=== PATIENT | female | born 1955 | race Caucasian/White ===

== ENCOUNTER → 2017-07-08 | Outpatient (CLI) | payer BC, OTHER | END | disposition home or self-care (01) | LOC: C.PAPS 14:15 | PROVIDERS: ATTEND Physician Assistant | DX: Z12.4 Encounter for screening for malignant neoplasm of cervix (principal) ==

== ENCOUNTER → 2017-09-01 | Outpatient (CLI) | payer OTHER ==
[~2017-09-01] MED LIST: ASPI81TA28 PO; DOCU-94 PO; LISI-461 PO
[2017-09-01 13:16] LABS: HEMATOCRIT 45.2 % (37-47); MEAN CELL VOLUME 90.8 fL (80-100); MEAN CORPUSCULAR HEMOGLOBIN 29.5 pg (25-34); MEAN CORPUSCULAR HGB CONC 32.5 g/dl (32-36); MEAN PLATELET VOLUME 10.6 fL (7.4-10.4); PLATELET COUNT 260 K/uL (130-400); RED BLOOD COUNT 4.98 M/uL (4.2-5.4); WHITE BLOOD COUNT 8.92 K/uL (4.8-10.8)
== END | disposition home or self-care (01) ==
LOC: C.LAB1850 12:06
PROVIDERS: ATTEND Obstetrics & Gynecology
DX: Z01.812 Encounter for preprocedural laboratory examination (principal)

== ENCOUNTER → 2017-09-22 | Day surgery (SDC) | payer OTHER ==
[2017-08-27 08:53] VITALS: Ht 163.8 cm; Wt 84.1 kg
[~2017-09-22] VITALS: Ht 163.8 cm; Wt 84.1 kg
[~2017-09-22] MED LIST changes: +ALBUAER; +ALBUTEROL 0.083% NEBU SOLN 3 ML VIAL INH ONE; +ALBUTEROL 0.083% NEBU SOLN 3 ML VIAL INH STA; +AMOX1TAB42 PO; +DEXAMETHASONE SOD INJ 4 MG/ML VIAL ONE; +FENTANYL CITRATE INJ 50 MCG/1 ML 2 ML VIAL ONE; +KETOROLAC TROMETHAMINE 30 MG/ML VIAL ONE; +LACTATED RINGER'S 1000ML 1,000 ML IV SCH; +LIDOCAINE HCL 2% 2 ML VIAL (20MG/ML) ONE; +MIDAZOLAM HCL 1 MG/ML 2ML VIAL ONE; +ONDANSETRON INJ 2 MG/ML 2 ML VIAL ONE; +PROPOFOL IV EMULSION 10 MG/ML 20 ML VIAL IV ONE
[2017-09-22 12:06] VITALS: PULSE 73; TEMP 36.8; O2SAT 97
[2017-09-22 12:36] VITALS: BP 162/88
--- NOTE | 2017-09-22 13:51 | Anesthesiology Progress Note ---
Anesthesia Progress Note Date of Service Sep 22, 2017. Progress Notes Patient presented for D & C and Hysteroscopy , under general anesthesia. Pt. is in the mid course of antibiotic therapy(augmentin) for sinusitis/URI.Pt is afebrile.Pt has been coughing quite frequently since arrival here.Pt also has Asthma.On PE of lungs .Pt has bilateral wheezing and coughing with white mucous.I had administered an albuterol nebulizer Tx to her.Wheezing was still present and coughing was still present.Pt states her chest is less tight after the Tx.After discussion w/ DR Garland and pt,it was agreed upon to cancel the elective procedure.Pt was advised to complete her antibiotic regimen and to see her primary physician.Dr Garland will reschedule her surgery in two weeks, assuming her breathing/infection has improved.
== END | disposition home or self-care (01) ==
LOC: X.SURG 11:28
PROVIDERS: ATTEND Obstetrics & Gynecology
DX: N95.0 Postmenopausal bleeding (principal); Z53.8 Procedure and treatment not carried out for other reasons; J32.9 Chronic sinusitis, unspecified; J45.909 Unspecified asthma, uncomplicated; I10 Essential (primary) hypertension; E04.9 Nontoxic goiter, unspecified; Z79.82 Long term (current) use of aspirin; Z79.899 Other long term (current) drug therapy

== ENCOUNTER → 2017-10-06 | Day surgery (SDC) | payer OTHER ==
[2017-09-28 11:04] VITALS: Ht 163.8 cm; Wt 84.1 kg
[~2017-10-06] VITALS: Ht 163.8 cm; Wt 84.1 kg
[~2017-10-06] MED LIST changes: -ALBUAER; +ALBUAER INH; -ALBUTEROL 0.083% NEBU SOLN 3 ML VIAL INH ONE; -ALBUTEROL 0.083% NEBU SOLN 3 ML VIAL INH STA; -AMOX1TAB42 PO; +ATROPINE SULFATE 0.1 MG/ML 5ML SYR IV PRN; -DEXAMETHASONE SOD INJ 4 MG/ML VIAL ONE; +EpHEDrine SULFATE INJ 50 MG/ML AMP IV PRN; +HYDROmorphone INJ 1 MG/ML SYR IV PRN; +KETAMINE HCL INJ 50 MG/ML 10 ML VIAL ONE; +MONT1TAB3 PO; +ONDANSETRON INJ 2 MG/ML 2 ML VIAL IV PRN; +OXYCODONE/ACETAMINOPHEN 5-325 TAB PO PRN; +PROMETHAZINE HCL INJ 12.5 MG in SODIUM CHLORIDE 0.9% 50ML 50 ML IV PRN; +PROMETHAZINE HCL INJ 25 MG in SODIUM CHLORIDE 0.9% 50ML 50 ML IV PRN; +SODIUM CHLORIDE 0.9% 1000ML 1,000 ML IV SCH
--- NOTE | 2017-10-06 08:54 | HISTORY & PHYSICAL EXAMINATION ---
DATE OF ADMISSION: 10/06/2017 CHIEF COMPLAINT: Postmenopausal bleeding. HISTORY OF PRESENT ILLNESS: The patient is a 62-year-old, here with complaint of postmenopausal bleeding and thickened endometrial lining was noted on ultrasound. She refuses an office attempt at endometrial biopsy, also requesting straight catheter urine sample to be sent for urine culture. She has urinalysis and culture done by primary care physician every few months to rule out urinary tract infection. No current symptoms. PAST MEDICAL HISTORY: Asthma, hypertension, thyroid goiter, history of blood transfusion, history of hepatitis C and history of mitral valve prolapse. PAST SURGICAL HISTORY: Appendectomy, removal of ectopic , elbow surgery, liver biopsy, thyroid biopsy, and tonsillectomy. FAMILY HISTORY: Denies. SOCIAL HISTORY: . Denies smoking. No alcohol use. Denies drug use. REVIEW OF SYSTEMS: All reviewed and negative except as above. ALLERGIES: DOXYCYCLINE. MEDICATIONS: Colace, aspirin 81 mg and lisinopril. PHYSICAL EXAMINATION: VITAL SIGNS: Please see nursing records for most up-to-date vitals. Most recent blood pressure in office was 130/80. PHYSICAL AND CONSTITUTIONAL: Awake, alert and oriented, no acute distress. CARDIOVASCULAR: Regular rate and rhythm. S1 and S2. LUNGS: Clear to auscultation bilaterally. ABDOMEN: Soft and nontender. No abdominal masses or hernias noted. EXTREMITIES: No edema. No calf tenderness. PELVIC: Deferred to operating room. ASSESSMENT: Postmenopausal bleeding. PLAN: Hysteroscopy, dilation and curettage and straight catheter urine specimen.
--- NOTE | 2017-10-06 14:03 | History & Physical Bridge - SC ---
H&P Re-Evaluation Bridge Note: I have examined the patient, reviewed the History & Physical and in the interval since the performance of the History & Physical I have noted the following changes of clinical significance: No changes noted
[2017-10-06 14:45] VITALS: TEMP 36.4
--- NOTE | 2017-10-06 14:46 | [facility] Post Operative Brief Note ---
Immediate Operative Summary Operative Date Oct 06, 2017. Pre-Operative Diagnosis Postmenopausal bleeding Post-Operative Diagnosis same as pre-op and endometrial polyp Procedure(s) Performed Dilatation And Curettage, Hysteroscopy, Polypectomy Surgeon Produce Specialist Surgeon(s) None Estimated Blood Loss 5ML Findings large endometrial polyp Specimens #1-Urine for culture A.Endometrial polyp Drains bladder drained prior to procedure for 150ml, sent to lab (sterile cath) Anesthesia heavy sedation Complication(s) None Disposition Recovery Room / PACU
--- NOTE | 2017-10-06 14:49 | Discharge Instructions-SurgCtr ---
Discharge Instructions Date of Service Oct 06, 2017. Visit Reason for Visit: Post Menopausal Bleeding Discharge Discharge Diagnosis / Problem: same + endometrial polyp Discharge Goals Goal(s): Diagnostic testing, Therapeutic intervention Activity Recommendations Activity Limitations: per Instructions/Follow-up section Anesthesia . Post Anesthesia Instructions: If you have had General Anesthesia or IV Sedation: * Do not drive today. * Resume driving when surgeon permits. * Do not make important decisions or sign legal documents today. * Call surgeon for: 1. Temperature elevations greater than 101 degrees F. 2. Uncontrollable pain. 3. Excessive bleeding. 4. Persistent nausea and vomiting. 5. Medication intolerance (nausea, vomiting or rash). * For nausea and vomiting use only clear liquids such as: tea, soda, bouillon until nausea subsides, then gradually increase diet as tolerated. * If you have any concerns or questions, call your surgeon's office. If physician is unavailable and it is an emergency, call 911 or go to the nearest emergency room. . Instructions / Follow-Up Instructions / Follow-Up ACTIVITY RECOMMENDATIONS: * Avoid tampons, douching, hot tubs, pools, and intercourse until bleeding has stopped. * May shower as usual. * No strenuous activity for 24-48 hours. After 24-48 hours, you may do anything you feel like doing (driving and sports are okay). SPECIAL CARE INSTRUCTIONS: Special Diet: * Mild nausea may occur in the immediate post-operative period. * Take clear liquids such as tea, cola or bouillon until all nausea has subsided; you may then resume your normal diet. Special Care: * Light bleeding and vaginal spotting can last from a few days to 3-4 weeks. Call your doctor if bleeding becomes heavier than the heaviest part of your period. * Check your temperature twice a day for one week. If it goes above 100.4 degrees Fahrenheit (38.0 Celsius), notify your doctor. * Call your doctor's office for an appointment for 6 weeks after your surgery. FOLLOW-UP VISIT: Call your doctor's office for an appointment for 6 weeks after your surgery. Diet Recommendations Home Diet: resume previous diet Procedures Procedures Performed: Dilatation And Curettage, Hysteroscopy, Polypectomy Pending Studies Studies pending at discharge: yes List of pending studies: endometrial polyp/curettings path Medical Emergencies . Who to Call and When: Medical Emergencies: If at any time you feel your situation is an emergency, please call 911 immediately. . Non-Emergent Contact Non-Emergency issues call your: Primary Care Provider, Breakdown Person . . "Provider Documentation" section prepared by Jenn Garland. .
[2017-10-06] MEDS: FENTANYL CITRATE INJ 50 MCG/1 ML 2 ML VIAL IV PRN ×2 (14:52→15:03)
--- NOTE | 2017-10-06 15:16 | OPERATIVE REPORT ---
DATE OF OPERATION: 10/06/2017 PREOPERATIVE DIAGNOSIS: Postmenopausal bleeding. POSTOPERATIVE DIAGNOSES: Same plus endometrial polyp. PROCEDURES PERFORMED: Dilation and curettage, hysteroscopy and polypectomy. SURGEON: Jenn Garland DO ELECTRIC SHIPYARD OPERATOR: None. ESTIMATED BLOOD LOSS: 5 mL. FINDINGS: Large endometrial polyp. SPECIMENS: 1. Urine for culture per patient request. 2. Endometrial polyp. DRAINS: Bladder drained prior to procedure for 150 mL, sent to lab as a sterile catheter specimen. ANESTHESIA: Heavy sedation. COMPLICATIONS: None. DISPOSITION: Stable and good to recovery room. INDICATIONS FOR PROCEDURE: The patient is a 62-year-old who had postmenopausal bleeding and thickened endometrial lining was seen on ultrasound, suggestive of polyp. DESCRIPTION OF PROCEDURE: The patient was seen in the preoperative holding area, where risks, benefits, alternatives were reviewed. She elected to proceed with surgery. She had previously signed informed consent under no duress in the office. She was taken to the operating room, where heavy sedation anesthesia was administered. She was prepared and draped in the usual sterile fashion with feet in Yellofin stirrups in the dorsal lithotomy position. A timeout was confirmed. A weighted speculum was placed in the vagina. Cervix was visualized and its anterior lip was grasped with a single tooth tenaculum. Cervix was gently dilated to admit the MyoSure hysteroscope. The hysteroscope was inserted and the above noted findings were seen. The MyoSure device was then inserted through the hysteroscope and the polypectomy was performed under direct visualization with the MyoSure device. The device and hysteroscope were withdrawn and a gentle curettage was undertaken with a sharp curette. All specimens were handed off and sent to pathology for further evaluation. All instruments were removed from the vagina. Excellent hemostasis was observed. The patient was then taken to the recovery area in stable and good condition. I attest to the content of the Intraoperative Record and any orders documented therein. Any exception s are noted below.
[2017-10-06 15:30] VITALS: BP 134/85; PULSE 70; O2SAT 99
--- NOTE | 2017-10-06 15:49 | Anesthesia Progress Nt - [facility] ---
Anesthesia Post Op Note Date & Time Oct 06, 2017 at 15:49 Vital Signs Pain Intensity: 5.0 Vital Signs Past 12 Hours Date Time Temp Pulse Resp B/P (MAP) Pulse Ox O2 Delivery O2 Flow Rate FiO2 10/06/17 15:30 70 16 134/85 (101) 99 Room Air 10/06/17 15:05 74 16 135/83 (100) 97 Room Air 10/06/17 14:45 36.4 82 12 155/87 (109) 97 Room Air 10/06/17 12:36 36.6 85 16 162/84 (110) 98 Room Air Notes Mental Status: alert / awake / arousable, participated in evaluation Pt Amnestic to Procedure: Yes Nausea / Vomiting: adequately controlled Pain: adequately controlled Airway Patency, RR, SpO2: stable & adequate BP & HR: stable & adequate Hydration State: stable & adequate Anesthetic Complications: no major complications apparent
== END | disposition home or self-care (01) ==
LOC: X.SURG 11:54
PROVIDERS: ATTEND Obstetrics & Gynecology
DX: N84.0 Polyp of corpus uteri (principal); I34.1 Nonrheumatic mitral (valve) prolapse; I10 Essential (primary) hypertension; J45.909 Unspecified asthma, uncomplicated; B19.20 Unspecified viral hepatitis C without hepatic coma; E04.1 Nontoxic single thyroid nodule; Z79.82 Long term (current) use of aspirin; Z79.899 Other long term (current) drug therapy